=== PATIENT | female | born 1990 | race Hispanic/Latino ===

== ENCOUNTER 2021-10-15 14:10 | Emergency (ER) | payer OTHER | END 2021-10-15 15:40 | disposition home or self-care (01) | LOC: CSHERS 14:10 | DX: S00.11XA Contusion of right eyelid and periocular area, initial encounter (principal); E11.9 Type 2 diabetes mellitus without complications; W19.XXXA Unspecified fall, initial encounter | CPT/HCPCS: 99283 ==

== ENCOUNTER 2021-11-22 14:42 | Outpatient (CLI) | payer OTHER | END 2021-11-22 14:43 | disposition home or self-care (01) | LOC: CSHULT 14:42 | PROVIDERS: ATTEND Student in an Organized Health Care Education/Training Program | DX: O09.93 Supervision of high risk pregnancy, unspecified, third trimester (principal) | CPT/HCPCS: 93306 ==

== ENCOUNTER 2021-12-14 14:23 | Outpatient (CLI) | payer OTHER | END 2021-12-14 14:24 | disposition home or self-care (01) | LOC: CSHLAB 14:23 | PROVIDERS: ATTEND Student in an Organized Health Care Education/Training Program | DX: Z20.822 Contact with and (suspected) exposure to COVID-19 (principal) | CPT/HCPCS: 87811 ==

== ENCOUNTER 2021-12-17 18:00 | Inpatient (IN) | payer MEDICAID, OTHER ==
[2021-12-21 06:11] VITALS: BMI 32.8
[2021-12-21] MEDS ORDERED: Bicitra 30 ML UDCUP PO PRN (06:22)
[2021-12-21] MEDS ORDERED: Famotidine/PF 20 mg/2ml Vial SLOW IVP PRN (06:22)
[2021-12-21] MEDS ORDERED: Ondansetron PF 4 MG/2 ML Vial IVP PRN ×2 (06:22→06:45)
[2021-12-21] MEDS ORDERED: Promethazine HCl 25 MG/ML VIAL IM PRN ×2 (06:22→06:45)
[2021-12-21] MEDS ORDERED: hydrALAZINE 20 MG/ML VIAL SLOW IVP PRN (06:22)
[2021-12-21] MEDS ORDERED: Misoprostol 200 MCG TAB PR PRN (06:28)
[2021-12-21] MEDS ORDERED: Carboprost 250 MCG/ML AMP IM PRN (06:28)
[2021-12-21] MEDS ORDERED: Methylergonovine 0.2 MG/ML VIAL IM PRN (06:28)
[2021-12-21] MEDS ORDERED: CEFAZOLIN 2 GM in Sodium Chloride 0.9% 100 ML IVPB SCH (06:30)
[2021-12-21] MEDS ORDERED: Lactated Ringer's 1,000 ML IV SCH (06:30)
[2021-12-21] MEDS ORDERED: NS w/ Oxytocin 30 units 500 ML IV SCH (06:30)
[2021-12-21] MEDS ORDERED: Tranexamic Acid 1,000 MG/10 ML VIAL IVP PRN (06:39)
[2021-12-21] MEDS ORDERED: Ketorolac Tromethamine 30 MG/ML VIAL IVP SCH (06:45)
[2021-12-21] MEDS ORDERED: Promethazine HCl 25 MG SUPP PR PRN (06:45)
[2021-12-21] MEDS ORDERED: diphenhydrAMINE 50 MG/ML VIAL IVP PRN (06:45)
[2021-12-21] MEDS ORDERED: Ketorolac Tromethamine 30 MG/ML VIAL IVP PRN (06:45)
[2021-12-21] MEDS ORDERED: HYDROmorphone 2 MG/ML VIAL SLOW IVP PRN (06:45)
[2021-12-21] MEDS ORDERED: Naloxone HCl 0.4 mg/ml Vial IVP PRN ×2 (06:45)
[2021-12-21] MEDS ORDERED: Moisturizing Cream (Eucerin) 113 GM JAR TOP PRN (06:45)
[2021-12-21] MEDS ORDERED: Communication Order-Pharmacy FS SCH (06:45)
[2021-12-21] MEDS ORDERED: Naloxone HCl 0.4 mg/ml Vial IV PRN (06:45)
[2021-12-21] MEDS ORDERED: Meperidine HCl/PF 25 MG/ML VIAL SLOW IVP PRN (06:45)
[2021-12-21] MEDS ORDERED: Ondansetron HCl/PF 4 MG/2 ML Vial IVP PRN (06:45)
[2021-12-21] MEDS ORDERED: Fentanyl 100 MCG/2 ML VIAL SLOW IVP PRN (06:45)
[2021-12-21] MEDS ORDERED: Fentanyl 100 MCG/2 ML VIAL ONE (07:06)
[2021-12-21] MEDS ORDERED: Ondansetron PF 4 MG/2 ML Vial ONE (07:06)
[2021-12-21] MEDS ORDERED: Morphine PF 10 MG/10 ML VIAL ONE (07:06)
[2021-12-21] MEDS ORDERED: Phenylephrine 10 MG/ML VIAL ONE (07:07)
[2021-12-21] MEDS ORDERED: Ketorolac Tromethamine 30 MG/ML VIAL ONE (07:07)
[2021-12-21] MEDS ORDERED: Oxytocin 10 UNITS/ML VIAL ONE ×2 (07:10→08:57)
[2021-12-21 07:12] LABS: Hemoglobin 12.7 g/dL (12.0-15.5); Mean Corpuscular HGB CONC 33.7 g/dL (32.0-36.0); Mean Corpuscular Hemoglobin 29.5 pg (27.0-33.0); Mean Corpuscular Volume 87.7 fl (81.6-98.3); Platelet Count 192 10x3/uL (150-450); RBC Distribution Width 14.3 % (11.5-14.5)
[2021-12-21 07:37] LABS: Syphilis Antibody Nonreactive (Nonreactive); Syphilis Antibody Index 0.04 S/CO (<1.00 Non-Reactive)
[2021-12-21 07:39] LABS: Hep B Surf Ag Non-Reactive S/CO (NonReactive)
[2021-12-21 07:47] LABS: HBSAg Index 0.17 S/CO (0-0.99)
[2021-12-21] MEDS ORDERED: PROPOFOL 20 ML ONE (08:26)
[2021-12-21] MEDS ORDERED: diphenhydrAMINE 50 MG/ML VIAL ONE (08:43)
[2021-12-21] MEDS ORDERED: Dextrose 5% in Water 1,000 ML IV PRN (10:03)
[2021-12-21] MEDS ORDERED: Dextrose 50% Abboject 50 ML SYRINGE SLOW IVP PRN (10:03)
[2021-12-21] MEDS ORDERED: Lanolin Ointment 7 GM TUBE TOP PRN (13:19)
[2021-12-21] MEDS ORDERED: diphenhydrAMINE 25 MG CAP PO PRN (13:19)
[2021-12-21] MEDS: Acetaminophen 325 MG TAB PO SCH ×3 (14:42→22:20)
[2021-12-21] MEDS: Docusate 100 MG CAP PO SCH (21:25)
[2021-12-22] MEDS: Acetaminophen 325 MG TAB PO SCH ×2 (03:08→07:29)
[2021-12-22 04:49] LABS: Hemoglobin 9.3 g/dL (12.0-15.5); Mean Corpuscular HGB CONC 33.5 g/dL (32.0-36.0); Mean Corpuscular Hemoglobin 29.2 pg (27.0-33.0); Mean Corpuscular Volume 87.4 fl (81.6-98.3); Mean Platelet Volume 13.1 fl (7.4-10.4); Platelet Count 147 10x3/uL (150-450); RBC Distribution Width 14.2 % (11.5-14.5); Red Blood Cell (RBC) Count 3.18 10x6/uL (3.90-5.03); White Blood Cell (WBC) Count 6.6 10x3/uL (3.5-10.5)
[2021-12-22] MEDS: Docusate 100 MG CAP PO SCH ×2 (07:54→21:36)
[2021-12-22] MEDS: Prenatal Vitamin 1 TAB PO SCH (07:54)
[2021-12-22] MEDS: HYDROcodone/Acetaminophen 5/325 mg Tablet PO PRN ×4 (07:54→21:37)
[2021-12-22] MEDS: Simethicone Chewable 80 MG TAB PO PRN ×2 (11:49→17:26)
[2021-12-22] MEDS: Ibuprofen 800 MG TAB PO SCH ×2 (14:15→21:36)
[2021-12-23] MEDS: HYDROcodone/Acetaminophen 5/325 mg Tablet PO PRN ×3 (01:10→13:56)
[2021-12-23] MEDS: Ibuprofen 800 MG TAB PO SCH ×2 (05:21→13:03)
[2021-12-23] MEDS: Docusate 100 MG CAP PO SCH (07:34)
[2021-12-23] MEDS: Prenatal Vitamin 1 TAB PO SCH (07:35)
[2021-12-23] MEDS ORDERED: metFORMIN 500 MG TAB PO SCH (09:00)
[2021-12-23] MEDS ORDERED: Polyethylene Glycol 3350 17 GM Packet PO SCH (09:00)
[2021-12-23 13:04] VITALS: BP 124/81; TEMP 97.9
== END 2021-12-23 14:06 | disposition home or self-care (01) | DRG 788 ==
LOC: CSHLD 12-21 05:40 → CSHPP 12-21 13:01
PROVIDERS: ADMIT Family Medicine; ATTEND Family Medicine
PROC: 10D00Z1 Extraction of Products of Conception, Low, Open Approach (ICD-10-PCS; principal; 2021-12-21)
DX: O24.425 Gestational diabetes mellitus in childbirth, controlled by oral hypoglycemic drugs (principal); O34.211 Maternal care for low transverse scar from previous cesarean delivery; Z20.822 Contact with and (suspected) exposure to COVID-19; Z3A.38 38 weeks gestation of pregnancy; Z37.0 Single live birth; Z79.84 Long term (current) use of oral hypoglycemic drugs; Z79.82 Long term (current) use of aspirin; Z79.899 Other long term (current) drug therapy; K66.0 Peritoneal adhesions (postprocedural) (postinfection); O99.62 Diseases of the digestive system complicating childbirth
CPT/HCPCS: 36416; 51702; 85027; 86780; 86850; 86900; 86901; 87340; J0690; J1200; J1885; J2274; J2370; J2405; J2590; J2704; J3010; J3490; S0028; U0003; U0005